=== PATIENT | female | born 1955 | race African-American/Black ===

== ENCOUNTER 2016-11-07 10:43 | Outpatient (CLI) | payer MEDICAID ==
[2016-11-07 11:12] LABS: Basophils % (Auto) 0.6 % (0.0-1.8); Eosinophils % (Auto) 1.3 % (0.0-4.3); Hematocrit 39.5 % (30.3-42.9); Mean Corpuscular HGB Conc 33 % (30-34); Mean Corpuscular Hemoglobin 28 pg (28-32); Mean Corpuscular Volume 84 fl (79-97); Platelet Count 199 K/mm3 (140-440); Red Blood Count 4.68 M/mm3 (3.65-5.03); Red Cell Distribution Width 14.5 % (13.2-15.2); White Blood Count 5.5 K/mm3 (4.5-11.0)
[2016-11-07 11:23] LABS: Albumin 5.3 g/dL (3.9-5); Bilirubin,Total 0.5 mg/dL (0.1-1.2); Calcium 11.5 mg/dL (8.4-10.2); Total Protein 10.5 g/dL (6.3-8.2)
[2016-11-07 12:29] LABS: Chloride 102.3 mmol/L (98-107); Potassium 3.9 mmol/L (3.6-5.0)
== END 2016-11-07 10:44 | disposition home or self-care (01) ==
LOC: LAB 10:43
PROVIDERS: ATTEND Psychiatry & Neurology Psychiatry
DX: F25.9 Schizoaffective disorder, unspecified (principal); F33.2 Major depressive disorder, recurrent severe without psychotic features; R79.89 Other specified abnormal findings of blood chemistry
CPT/HCPCS: 36415; 80053; 80061; 83036; 84146; 84439; 84443; 85025